=== PATIENT | female | born 1980 | race Caucasian/White ===

== ENCOUNTER 2017-10-10 09:13 | Outpatient (CLI) | payer BC ==
--- NOTE | 2017-10-10 13:01 | Diagnostic Imaging Report ---
Indication: Right neck palpable mass Technique: Grayscale and duplex images of the, no abnormality in the Comparison: none Findings: Posterior to the right ear, in the area of palpable abnormality, numerous prominent lymph nodes are demonstrated. The largest of these measures 22 mm long axis dimension. Impression: Prominent lymph nodes demonstrated, corresponding to palpable abnormality. Whether these nodes are normal, reactive, or neoplastic cannot be assessed based on imaging findings. Recommend clinical follow-up, consideration for biopsy should nodes enlarge clinically
== END 2017-10-10 11:13 | disposition home or self-care (01) ==
LOC: ULS 09:13
DX: R59.1 Generalized enlarged lymph nodes (principal)
CPT/HCPCS: 76536

== ENCOUNTER 2017-11-29 09:26 | Outpatient (CLI) | payer BC ==
--- NOTE | 2017-11-29 11:52 | Pre-Procedure Note/Attestation ---
Pre-Procedure Note/Attestation Complete Prior to Procedure Planned Procedure: not applicable Procedure Narrative: US guided lymph node biopsy Indications for Procedure Pre-Operative Diagnosis: lymphadenopathy Attestation I attest that I discussed the nature of the procedure; its benefits; risks and complications; and alternatives (and the risks and benefits of such alternatives ), prior to the procedure, with the patient (or the patient's legal national sales representative). I attest that, if there was a reasonable possibility of needing a blood transfusion, the patient (or the patient's legal national sales representative) was given the [facility] standardized written summary, pursuant to the [employer] Blood Safety Act ([place] Health and Safety Code # 1645, as amended). I attest that I re-evaluated the patient just prior to the surgery and that there has been no change in the patient's H&P, except as documented below: ANGEL CONNELL M.D. Nov 29, 2017 11:52
--- NOTE | 2017-11-29 14:03 | Diagnostic Imaging Report ---
Indication: Palpable lymphadenopathy Technique: Informed consent obtained prior to commencement of the procedure. Prior imaging studies reviewed. Procedure timeout performed. Initially, attention turned to the. Noted in the retroauricular region. Skin was sterilely prepped and draped. Local anesthesia with 1% lidocaine. Using an 18-gauge hypodermic needle as a guide, a 22-gauge Accu cut needle was passed into this. However, needle access was limited by suboptimal visualization, and 2 specimens were obtained yielding only mucinous material which was acellular. Therefore, attention turned to the 3 more superficial nodes demonstrated on prior sonography. Attempts made at accessing one of these from the same access. However, this node was very mobile and resistant to puncture. The skin was reprepped, redraped and reanesthetized. From a posterior approach, the more posterior of the 3 nodes was accessed successfully using 22-gauge vacuum needle. Initial smears indicated adequate cellularity specimen. 2 more specimens were obtained, placed in RPMI and formalin, sent to pathology. The patient tolerated the procedure well, without immediate complication. Comparison: Reference made to ultrasound of 10/10/2017 Findings: As above Impression: Left neck node biopsy, as described. Final pathology pending
== END 2017-11-29 11:26 | disposition home or self-care (01) ==
LOC: RAD 09:26 → EDSTATUS 09:30 → RAD 11:26
DX: R59.1 Generalized enlarged lymph nodes (principal)
CPT/HCPCS: 76942